=== PATIENT | male | born 1975 | race Caucasian/White ===

== ENCOUNTER → 2017-06-11 | Outpatient (CLI) | payer BC ==
[~2017-06-11] MED LIST: ATOR10TA82 PO; CETI10TA84 PO; ERYC250 PO; FRS/40 PO; INSDGI PO; METF1TAB53 PO; METO100T44 PO; NXM/40 PO; PROM25TA9 PO; RIZA10TA18 PO; SITA100T3 PO
== END | disposition home or self-care (01) ==
LOC: C.LAB1850 12:00
PROVIDERS: ATTEND Internal Medicine Endocrinology, Diabetes & Metabolism
DX: E11.65 Type 2 diabetes mellitus with hyperglycemia (principal)